=== PATIENT | female | born 1945 ===

== ENCOUNTER 2017-01-26 04:49 | Inpatient (IN) | payer OTHER ==
[~2017-01-26] VITALS: Ht 165.1 cm; Wt 84.6 kg
--- NOTE | ~2017-01-26 | CT18 ---
[facility] A Service of [facility] RADIOLOGY TEXT RESULTS PATIENT: EULALIO DEL CID LOCATION: [facility] : 47 UNIT #: [id number] AGE: [address]: ANNY BARNARD V SEX: F ORDER DR: [id number] [place], [place] [address] [id number] I MR#: [id number] Acc #: [id number] NAME: EULALIO DEL CID : 1945 SEX: F STUDY DATE/TIME: 01/26/2017 7:33 UNIT: [facility] PCU ROOM: [facility] STUDY DESCRIPTION: CT Angio Head Stroke Attending Physician: Anny Barnard M.D. Ordering Physician: Mekhi Buitrago M.D. Primary Care Physician: Primary Care Physician No MEDICAL IMAGING REPORT This report is preliminary unless electronic signature is present EXAM CT head and neck INDICATIONS Dizziness and slurred speech. Right-sided weakness. Nausea and vomiting. TECHNIQUE CT head neck utilizing 100 mL Isovue-370 IV contrast. Coronal and sagittal 3-D MIP reconstructions were obtained. Volume rendered and surface rendered reconstructions were performed. Curved planar reconstructions were also obtained and reviewed. The CT exam was performed with one or more of the following radiation dose reduction techniques: automatic exposure control, adjustment of mA and/or kV according to patient size, and iterative reconstruction. COMPARISON CT head dated 01/27/2017. FINDINGS CTA Neck: Evaluation for significant arterial stenosis is based upon NASCET criteria. There is a bovine aortic arch. Arch vessels are widely patent. Left vertebral artery emanates directly off of the aortic arch. Both carotid arteries have mild atherosclerotic disease, however, there is no evidence for significant stenosis. The left vertebral artery is hypoplastic, however it is widely patent. Right vertebral artery is dominant. There is mild atherosclerotic disease involving the proximal right vertebral artery, however this is not felt to be significant. [facility] A Service of [facility] RADIOLOGY TEXT RESULTS PATIENT: EULALIO DEL CID LOCATION: [facility] : 47 UNIT #: [id number] AGE: [address]: ANNY BARNARD V SEX: F ORDER DR: CTA head: There is moderate atherosclerotic disease of the intracranial internal carotid arteries. No evidence of vascular stenosis. There is mild atherosclerotic disease involving the middle cerebral arteries and the anterior cerebral arteries, however there is no evidence of a significant stenosis. The anterior communicating artery is widely patent. The left vertebral artery is hypoplastic terminating as the PICA branch. Right vertebral artery is dominant. Basilar artery is normal. The posterior cerebral arteries are both widely patent. The posterior communicating arteries are not clearly identified. IMPRESSION 1. Moderate atherosclerotic disease throughout the head and neck, however, there is no evidence of a significant vascular stenosis, thrombosis, or aneurysm Dictated by... Silvio Rodriguez M.D. THIS IS AN ELECTRONICALLY VERIFIED REPORT Silvio Rodriguez M.D. at 01/28/2017 11:09 AM CORBIN/corinne TD: 01/28/2017 10:44 JOB #: [id number] MEDICAL IMAGING REPORT Page 1 of 1 COPY
--- NOTE | ~2017-01-26 | CO ---
Unit #: [id number] #: [id number] Patient: EULALIO DEL CID [id number] [facility] [address] [place], [place] [address] [id number] I MR#: [id number] NAME: EULALIO DEL CID ROOM: 319 Age: 71 Sex: F Admission Date: 01/26/2017 : 1945 Attending Physician: Wes Angulo M.D. Primary Care Physician: Primary Care Physician No Consultation Date: 01/26/2017 CONSULTATION REPORT REFERRING PHYSICIAN 1. Tejal Sanchez M.D. 2. Mekhi Buitrago M.D. PRIMARY CARE PHYSICIAN Not known. REASON FOR CONSULTATION Possible stroke and acute change in mental status. PATIENT IDENTIFICATION This is a 71-year-old right-handed [place] female who is evaluated in ICU room #[address] [facility]. SOURCE OF INFORMATION The patient and we used a scrub nurse phone because of difficulty with her particular dialect and possible with communication problem and speech issues, ultimately start using her daughter on the scrub nurse phone. PROBLEM LIST 1. It looks like she has prior strokes. 2. Looks like she has hypertension. 3. Also, she came in with different symptoms including nausea and vomiting. 4. 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 5. She was also having some dizziness. HISTORY OF PRESENT ILLNESS This is a very pleasant 71-year-old female who actually is from [facility] and was visiting her family. She came in early this morning around 04:49 a.m. via EMS for some nausea, vomiting, and diarrhea. She was feeling dizzy. While she was being evaluated, they noticed that there was an abrupt change in her speech and that raised the flag and acute code stroke was called in at 06:36 a.m. She apparently was last seen normal at 06:25 in the morning while she was still in the hospital and being worked up for her other issues. I got called and I talked to Dr. Buitrago and got on the [employer] robot. She initially was reported to have right-sided weakness and some facial weakness, but the biggest issue was speech. When I examined her, the right-sided weakness, everything was fine, but she did have significant speech problem. So at that time, the decision was made that this was a measurable deficit and we made medication error, but definitely she was not communicating at all even simple things and following commands, so decided to take her to the ER and talk to the Unit #: [id number] #: [id number] Patient: EULALIO DEL CID family and look for any contraindication and fulfill requirements and if she continues to be like that to give her tPA, then she improved significantly and few minutes later, she started having problems again. She was talking to her family and air hammer stripper phone and instead of saying anything particular she would say "da da da da da." So I talked to Dr. Buitrago and we decided to go ahead with tPA. I requested a CTA in the meantime and I looked at it looks okay to me with no major cut off, but official reading is pending. TPA was started at 07:53 a.m. and this was all because of the changing status and getting more information. She has improved significantly. Next, the ER staff gave her score of about 6 and most of that was for left-sided weakness and numbness and she is residual from a prior stroke, which on CT looks like right basal ganglia infarct and that could explain this, but now we are following stroke protocol one of the other concern was her blood pressure was elevated and that is being addressed. I talked to Dr. Sanchez personally and we are looking at other issues. There was question about hydroureter, so that is being addressed. It looks like she may be taking some sort of antiplatelet aggregates, but we are trying to get that information and the medication list. When asked the patient, she says that her body feels heavy. She is not saying any particular focal problem anymore like speech problem or right-sided weakness. Nothing suggesting seizures. PAST MEDICAL HISTORY As discussed above. PAST SURGICAL HISTORY Nothing known to me. ALLERGIES Not known to me. MEDICATIONS She is on some sort of anti-platelet. Other medications are being looked into, I do not have the list right now or MAR. She is n.p.o. because of the stroke. FAMILY HISTORY Details not known. SOCIAL HISTORY She is visiting from [facility]. She has been here since November. Her marital status is not known. There is no tobacco, alcohol, or drug use known to us. REVIEW OF SYSTEMS CONSTITUTIONAL: She reports that she feels heavy and that is it. She denies any weight issues, sleep problems, fever, chills, rigor, or sweats. HEENT: No headaches. No double vision, earache, runny nose, or sore throat. CARDIOVASCULAR: No chest pain, clubbing, cyanosis, orthopnea, or palpitations. PULMONARY: No shortness of breath, cough, or expectoration. GASTROINTESTINAL: She has some nausea, vomiting, and dizziness. Unit #: [id number] #: [id number] Patient: EULALIO DEL CID GENITOURINARY: No genitourinary symptoms. EXTREMITIES: Positive for stroke with prior left-sided weakness. BACK: No back problem. PSYCHIATRIC: No psychiatric issue known to me. NEUROLOGIC: Neurologic issue was stroke. No other hematologic, dermatologic, or endocrine issues known to me. PHYSICAL EXAMINATION VITAL SIGNS: Temperature 97.7, pulse 67, respirations 18, and blood pressure 147/65. Pain was reported as 4/10. O2 saturations 96%. Weight of 184 pounds. BMI was 30. NEUROLOGIC EXAMINATION The patient is awake. She is alert. She knows this is January. She knows she is in the hospital in [place], year, date, and time otherwise is very questionable. She can name. She can follow commands. Cranial nerve examination demonstrates full wu of vision to confrontation. Eye movements seem to be conjugate. Pupils are round and reactive to light, and accommodation size about 3 mm. Eye movements are conjugate. No ptosis. No nystagmus. Sensation on the face and scalp are normal. Strength of muscles of facial expression normal. Hearing seemed to be intact. Tongue was midline. I could not visualize her oropharynx or uvula. Head turning was spontaneous. Motor examination demonstrated normal bulk and tone on the right side. Left side questionably give-way weakness. Sensory examination, very minimal decreased sensation on the left side. I could not get any reflexes. Toes are mute. Coordination on the right and left was otherwise okay. Gait examination is deferred. LABORATORY DATA AND DIAGNOSTIC STUDIES Reviewed and as discussed. Random glucose was 175. White count was 9.3, H and H of 12.8 and 38.3, and platelet count was 212. Urinalysis is pending. CT of the head showed what looks like old right basal ganglia infarct. Her MRI and further testing are pending. CT results are pending. IMPRESSION/RECOMMENDATIONS Status post alteplase for speech problem, which is improving. Rule out infection, rule out unmasking. Do full stroke workup and we will go from there. Treatment will be based on our findings and I will keep you informed and detailed discussion with her daughter. I using her as a scrub nurse because of her language barrier and we will see how things go. I will follow her while she is here and follow the stroke protocol. Call me for any other questions, issues, or concerns. Dictated by... Claudia Valladares/raffy TD: 01/27/2017 09:40 JOB #: [id number] Unit #: [id number] #: [id number] Patient: EULALIO DEL CID CONSULTATION REPORT Page 1 of 1 X Herson Farrell MD X CONSULTATION REPORT
--- NOTE | ~2017-01-26 | CT71 ---
[facility] A Service of [facility] RADIOLOGY TEXT RESULTS PATIENT: EULALIO DEL CID LOCATION: [facility] PC 319-01 : [birth year] UNIT #: [id number] AGE: [address]: ANNY BARNARD V SEX: F ORDER DR: [id number] [place], [place] [address] [id number] I MR#: [id number] Acc #: [id number] NAME: EULALIO DEL CID : 1945 SEX: F STUDY DATE/TIME: 01/27/2017 8:08 UNIT: [facility] ROOM: [facility] STUDY DESCRIPTION: CT Head Wo Contrast Attending Physician: Anny Barnard M.D. Ordering Physician: Herson Farrell M.D. Primary Care Physician: Primary Care Physician No MEDICAL IMAGING REPORT This report is preliminary unless electronic signature is present EXAM CT of the head without contrast INDICATION Left side weakness and slurred speech since yesterday. Patient is status post tPA administration. TECHNIQUE CT head performed without contrast. This CT exam was performed with one or more of the following radiation dose reduction techniques: automatic exposure control, adjustment of mA and/or kV according to patient size, and iterative reconstruction. COMPARISON 01/26/2017 FINDINGS There is no evidence for intracranial hemorrhage. Stable hypodensity in the region of the left thalamus consistent with the patient's acute infarct shown on MRI. Stable lacunar infarct in the right basal ganglia region. Stable chronic-appearing white matter changes elsewhere. No hydrocephalous. The remainder of the study is unchanged. IMPRESSION Stable acute infarct within the left thalamus. No evidence for intracranial hemorrhage. Stable chronic changes elsewhere. Dictated by... Mulugeta East M.D. THIS IS AN ELECTRONICALLY VERIFIED REPORT Mulugeta East M.D. at 01/28/2017 7:[address] [facility] A Service of [facility] RADIOLOGY TEXT RESULTS PATIENT: EULALIO DEL CID LOCATION: [facility] 319-01 : [birth year] UNIT #: [id number] AGE: [address]: ANNY BARNARD V SEX: F ORDER DR: Agatha TD: 01/27/2017 10:33 JOB #: [id number] MEDICAL IMAGING REPORT Page 1 of 1 COPY
--- NOTE | ~2017-01-26 | CT71 ---
[facility] A Service of [facility] RADIOLOGY TEXT RESULTS PATIENT: EULALIO DEL CID LOCATION: [address] : [birth year] UNIT #: [id number] AGE: [address]: Tejal Sanchez MD SEX: F ORDER DR: [id number] [facility] [address] [place], [place] [address] [id number] I MR#: [id number] Acc #: [id number] NAME: EULALIO DEL CID : 1945 SEX: F STUDY DATE/TIME: 01/26/2017 9:38 UNIT: [facility] ROOM: [facility] STUDY DESCRIPTION: CT Head Wo Contrast Attending Physician: Tejal Sanchez M.D. Ordering Physician: Mekhi Buitrago M.D. Primary Care Physician: Primary Care Physician No MEDICAL IMAGING REPORT This report is preliminary unless electronic signature is present EXAM Head CT without contrast 01/26/2017 HISTORY Acute mental status change today with slurred speech and vomiting. Right side weakness. Dizziness. TECHNIQUE Multiple axial images were obtained from the skull base to vertex without intravenous contrast administration. This CT exam was performed with one or more of the following radiation dose reduction techniques: automatic exposure control, adjustment of mA and/or kV according to patient size, and iterative reconstruction. FINDINGS Arterial calcification is noted from preceding CT angiogram of the head neck. The ventricles are normal in size, shape and position. There is periventricular microvascular white matter ischemic change. Old infarct in the right lentiform nucleus. Basal ganglia calcification. There is no midline shift. There is no mass or mass effect, hemorrhage or acute infarct. The visualized paranasal sinuses are clear. IMPRESSION Microvascular white matter ischemic change. Old infarct right lentiform nucleus. No acute intracranial abnormality. Dictated by... Jeremy Fong M.D. THIS IS AN ELECTRONICALLY VERIFIED REPORT Jeremy Fong M.D. at 01/27/2017 6:36 AM KRT/to [facility] A Service of [facility] RADIOLOGY TEXT RESULTS PATIENT: EULALIO DEL CID LOCATION: [facility]IC[facility]2-04 : [birth year] UNIT #: [id number] AGE: [address]: Tejal Sanchez MD SEX: F ORDER DR: TD: 01/26/2017 15:06 JOB #: [id number] MEDICAL IMAGING REPORT Page 1 of 1 COPY
--- NOTE | ~2017-01-26 | MR18 ---
[facility] A Service of [facility] RADIOLOGY TEXT RESULTS PATIENT: EULALIO DEL CID LOCATION: A 319-01 : [birth year] UNIT #: [id number] AGE: [address]: ANNY BARNARD V SEX: F ORDER DR: [id number] [facility] [address] [place], [place] [address] [id number] I MR#: [id number] Acc #: [id number] NAME: EULALIO DEL CID : 1945 SEX: F STUDY DATE/TIME: 01/26/2017 14:18 UNIT: A U ROOM: 319 STUDY DESCRIPTION: MR Brain Wo Contrast Attending Physician: Anny Barnard M.D. Ordering Physician: Tejal Sanchez M.D. Primary Care Physician: Primary Care Physician No MRI CENTER REPORT This report is preliminary unless electronic signature is present. EXAM MRI brain without HISTORY Dizziness and slurred speech after arrival at 06:20 post t-PA around 07:53. History of stroke in the past and left-sided weakness residually per daughter. History of hypertension, diabetes. COMMENT MRI of the brain was performed without contrast using routine 1.5T imaging technique. Preliminary wet reading provided by Dr. Thomas at 16:25 01/26/2017. Report relayed to Adair Dutton, nurse caring for the patient, 04:28 p.m. same day. Head CT comparison is from 06:47 01/26/2017. Some restricted diffusion seen at the anteromedial left thalamus extending along the posterior limb of the internal capsule on the left side. This is subtle and consistent with a recent ischemic insult. It is probably at most about 2.0 cm in longest dimension and at this time there is no appreciable mass effect. At this time there is nothing to suggest intracranial hemorrhage. There is mineral deposition bilaterally at the globus pallidi. No Chiari-I malformation. The major arterial intracranial flow voids are maintained allowing for hypoplasia or disease of the distal left vertebral artery. Minimal fluid or inflammatory change at the mastoid tip on the left. The paranasal sinuses are essentially clear. There is extensive preexisting probable sequelae of small vessel disease and this includes a focal area of signal abnormality and volume loss in the right posterior holman radiata and posterior limb of the internal capsule consistent with the old CVA that had resulted in a left body symptoms. There is no extraaxial fluid collection or intracranial mass effect at this time. Smaller bilateral basal ganglionic and thalamic lacunar insults are also seen. IMPRESSION [facility] A Service of [facility] & [facility] RADIOLOGY TEXT RESULTS PATIENT: EULALIO DEL CID LOCATION: [facility] 319-01 : [birth year] UNIT #: [id number] AGE: [address]: ANNY BARNARD V SEX: F ORDER DR: Starla. Findings are consistent with a recent ischemic insult centered at the anterior left thalamus involving posterior limb of the left internal capsule. It is not associated with mass effect or MR evidence for intracranial hemorrhage. 2. There is fairly extensive probable sequelae of small vessel disease which is chronic. This includes a focal insult to the right posterior holman radiata and posterior limb of the right internal capsule consistent with history of previous CVA resulting in left body weakness. STAT * RESULT Dictated by... Neeru Vieira M.D. THIS IS AN ELECTRONICALLY VERIFIED REPORT Neeru Vieira M.D. at 01/28/2017 2:10 PM [facility] TD: 01/28/2017 08:38 JOB #: [id number] MRI CENTER REPORT Page 1 of 1 COPY
--- NOTE | ~2017-01-26 | HP ---
Unit #: [id number] #: [id number] Patient: EULALIO DEL CID [id number] [facility]. [place], [place] [address] [id number] I MR#: [id number] NAME: EULALIO DEL CID ROOM: [facility] Age: 71 Sex: F Admission Date: 01/26/2017 : 1945 Attending Physician: Tejal Sanchez M.D. Primary Care Physician: No Primary Care Physician HISTORY AND PHYSICAL CHIEF COMPLAINT Nausea, vomiting, diarrhea. HPI The patient is a 71-year-old female who is from [facility]. History is obtained via the patient's daughter who is translating. The patient states that she woke from sleep this morning around 2:30 with nausea, vomiting, diarrhea and abdominal pain. The vomiting was initially nonbloody; however, it did become dark during the course of her evaluation in the emergency department. The pain in her abdomen is in the left lower quadrant. She describes it as "pressure." There are no exacerbating or alleviating factors. She denies any similar pain. She states that she did start having burning with urination yesterday. She had one loose stool today. She denies any fever. No chest pain, no cough or cold symptoms. During the course of her evaluation in the emergency department, the patient had a change in mental status. Her speech became slurred and unintelligible. She appeared to have weakness on the left side. A Code Stroke was called. Initial NIH was 6. She was given tPA. She is being admitted to [facility] for evaluation and further treatment. The symptoms are still present. Although speech is somewhat improved, the patient still has left sided weakness. PAST MEDICAL HISTORY 1. Cerebrovascular accident in 2000. The patient had left sided weakness and numbness at that time. She did go to rehab. She has residual left sided weakness and numbness. 2. Hypertension. 3. Hyperlipidemia. 4. Diabetes. PAST SURGICAL HISTORY 1. Foot surgery. SOCIAL HISTORY The patient is from [facility]. She is here in [place] visiting her daughter. She typically walks with a cane. She quit smoking several months ago. FAMILY HISTORY Notable for her dad dying of a myocardial infarction. ALLERGIES Unit #: [id number] #: [id number] Patient: EULALIO DEL CID There are no allergies listed. MEDICATIONS Home medications include: 1. Metformin. 2. Dipyridamole. 3. Atorvastatin. 4. What looks like a beta adeola (some of the medications are in Vietnamese). Home medications will need to be reviewed and verified. REVIEW OF SYSTEMS A complete review of systems is negative except as indicated in the HPI. The patient states that she has never had a cardiac catheterization. She denies heart failure. No coronary artery disease. DIAGNOSTIC TESTS CARDIOVASCULAR: EKG shows normal sinus rhythm with a rate of 65 beats per minute. IMAGING: Initial head CT was negative. A repeat head CT was done following an episode of dark emesis in the emergency department. It also showed nothing acute. There is an old infarct involving the right lentiform nucleus.. LABORATORY: Basic metabolic panel notable for glucose of 183, BUN and creatinine of 29 and 1 respectively. Initial troponin is less than 0.05. Complete blood count is completely normal. There is no urinalysis. PHYSICAL EXAMINATION VITAL SIGNS: Temperature is 98.4, pulse 67, respirations 15, blood pressure 138/68. Oxygen saturation 96% on room air. GENERAL: The patient is a awake and alert. HEENT: The head is atraumatic. Mucous membranes are moist. NECK: Neck is supple. Trachea is midline. CARDIOVASCULAR: Cardiovascular is regular rate and rhythm. LUNGS: Lungs are clear to auscultation bilaterally with no increased work of breathing. ABDOMEN: Abdomen is soft, nontender with bowel sounds present in all four quadrants. EXTREMITIES: Extremities are nontender with no pedal edema. NEURO: The patient is still having some abnormal speech per her daughter. There is no appreciable pronator drift. She does have weakness involving the left lower extremity. Stencil Printer strength is symmetric. Gait was not assessed. PSYCH: Mood and affect are normal. The patient is cooperative. SKIN: Skin of examined areas is warm and dry. ASSESSMENT The patient is a 71-year-old female with: 1. Cerebrovascular accident. The patient received tPA in the emergency department. 2. Left hydroureter/hydronephrosis. A urinalysis is pending. Unit #: [id number] #: [id number] Patient: EULALIO DEL CID 3. Abdominal pain. 4. History of cerebrovascular accident, right lentiform nucleus with residual left sided weakness that is currently worse than baseline. 5. Hypertension. 6. Hyperlipidemia. 7. Diabetes. 8. Former smoker. PLAN 1. Admit to ICU. 2. NPO until speech evaluation and per tPA protocol. 3. Speech therapy to evaluate and treat. 4. Consult Dr. Farrell regarding cerebrovascular accident. 5. tPA protocol and stroke protocol per neurology. 6. MRI of the brain without contrast. 7. Neuro checks. 8. Serial cardiac enzymes. 9. P.r.n. Zofran. 10. Check urinalysis. 11. Strict I's and O's. 12. Consult Dr. Wharton regarding hydronephrosis/hydroureter. 13. Check LFTs. 14. Consult Dr. Osman regarding ICU admission. 15. Repeat labs in the morning including INR. 16. SCDs for DVT prophylaxis. 17. Additional workup and consultants based on above. 45 minutes critical care time spent in the care of this patient (11:30 to 12:15 p.m.). Dictated by Claudia Willams/lilo TD: 01/26/2017 14:53 JOB #: [id number] HISTORY AND PHYSICAL Page 1 of 1 X Tejal Sanchez MD X HISTORY AND PHYSICAL
--- NOTE | ~2017-01-26 | CT24 ---
[facility] A Service of [facility] & [facility] RADIOLOGY TEXT RESULTS PATIENT: EULALIO DEL CID LOCATION: [facility] 319-01 : [birth year] UNIT #: [id number] AGE: [address]: ANNY BARNARD V SEX: F ORDER DR: [id number] [address] [id number] I MR#: [id number] Acc #: [id number] NAME: EULALIO DEL CID : 1945 SEX: F STUDY DATE/TIME: 01/26/2017 7:33 UNIT: [address] ROOM: [employer] STUDY DESCRIPTION: CT Angio Neck Stroke Attending Physician: Anny Barnard M.D. Ordering Physician: Mekhi Buitrago M.D. Primary Care Physician: Primary Care Physician No MEDICAL IMAGING REPORT This report is preliminary unless electronic signature is present EXAM CT angiogram neck Please see CT angiogram of the head for combined report. Dictated by... Silvio Rodriguez M.D. THIS IS AN ELECTRONICALLY VERIFIED REPORT Silvio Rodriguez M.D. at 01/28/2017 11:09 AM CORBIN/corinne TD: 01/28/2017 10:52 JOB #: [id number] MEDICAL IMAGING REPORT Page 1 of 1 COPY
--- NOTE | ~2017-01-26 | CR72 ---
[facility] A Service of [facility] & [facility] RADIOLOGY TEXT RESULTS PATIENT: EULALIO DEL CID LOCATION: [facility] 319-01 : [birth year] UNIT #: [id number] AGE: [address]: ANNY BARNARD V SEX: F ORDER DR: [id number] [facility] [address] [place], [place] [address] [id number] I MR#: [id number] Acc #: [id number] NAME: EULALIO DEL CID : 1945 SEX: F STUDY DATE/TIME: 01/27/2017 3:22 UNIT: [facility] ROOM: [facility] STUDY DESCRIPTION: CR Chest Single View Portable Attending Physician: Anny Barnard M.D. Ordering Physician: Maximus Ordonez M.D. Primary Care Physician: Primary Care Physician No MEDICAL IMAGING REPORT This report is preliminary unless electronic signature is present EXAM Portable chest INDICATION Shortness of air for the past 2 days. PROCEDURE Frontal view chest. COMPARISON None FINDINGS Mild cardiomegaly. No dense consolidation. No visible pleural fluid or pneumothorax. IMPRESSION No active process. Dictated by... Faizan Welch M.D. THIS IS AN ELECTRONICALLY VERIFIED REPORT Faizan Welch M.D. at 01/27/2017 10:07 PM Nelly TD: 01/27/2017 08:35 JOB #: [id number] MEDICAL IMAGING REPORT Page 1 of 1 COPY
--- NOTE | ~2017-01-26 | CT4 ---
[facility] A Service of [facility] & [facility] RADIOLOGY TEXT RESULTS PATIENT: EULALIO DEL CID LOCATION: [facility] 319-01 : [birth year] UNIT #: [id number] AGE: [address]: ANNY BARNARD V SEX: F ORDER DR: [id number] [id number] [facility]. [place], [place] [address] [id number] I MR#: [id number] Acc #: [id number] NAME: EULALIO DEL CID : 1945 SEX: F STUDY DATE/TIME: 01/28/2017 9:40 UNIT: [facility] PCU ROOM: 319 STUDY DESCRIPTION: CT Abd and Pelv Wo Cont Attending Physician: Anny Barnard M.D. Ordering Physician: Anny Barnard M.D. Primary Care Physician: Primary Care Physician No MEDICAL IMAGING REPORT This report is preliminary unless electronic signature is present EXAM CT of the abdomen and pelvis without contrast INDICATION New left-sided abdominal pain. This patient had a CT performed 01/26/2017 which showed left-sided hydroureteronephrosis without obvious obstructing lesion. TECHNIQUE Axial CT images were obtained from the dome of the diaphragm to the symphysis pubis. No intravenous contrast material was administered. This CT exam was performed with one or more of the following radiation dose reduction techniques: Automatic exposure control, adjustment of mA and/or kV according to patient size, and iterative reconstruction. FINDINGS Left-sided hydroureteronephrosis is again seen. I think the degree of dilatation is probably stable when compared to the January 26, 2017 examination. Adjacent to the distal left ureter, there is some hyperdensities but I think these are actually phleboliths rather than stones within the ureter, particularly when compared to the prior study. A Box catheter is present within the urinary bladder which does appear to be relatively well decompressed. No stones are identified within either kidney. There is some persistent perinephric stranding. The appearance, however, is unchanged when compared to the prior study. Correlation with urinalysis and urine cultures is again suggested. There is diffuse hepatic steatosis as well as hepatomegaly with the liver measuring up to 16.2 cm in craniocaudal dimensions. There is a small hiatal hernia. Proximal small bowel is within normal limits as are the adrenal glands and pancreas. Spleen is normal. Gallbladder also appears unremarkable. I do not see any free fluid or adenopathy within the abdomen. There is no evidence of mechanical bowel obstruction. Uterus contains multiple calcified leiomyomata. Unopacified GI tract appears STS. [facility] A Service of [facility] RADIOLOGY TEXT RESULTS PATIENT: EULALIO DEL CID LOCATION: [facility] 319-01 : [birth year] UNIT #: [id number] AGE: [address]: ANNY BARNARD V SEX: F ORDER DR: avelino. Review of bony windows does not demonstrate any aggressive osseous abnormalities. Patient is noted to have some mild bibasilar atelectasis not significantly changed when compared to prior study. IMPRESSION 1. Persistent mild left-sided hydroureteronephrosis of uncertain etiology. There are some hyperdensities which are seen adjacent to the distal left ureter, however, I think these are actually probably phleboliths rather than stones within the ureter, based upon comparison to this patient's enhanced study from January 26, 2017. A Box catheter is present within the urinary bladder and appears relatively decompressed. I do not see any definite stones within either kidney. Degree of hydronephrosis is stable when compared to the January 26, 2017 exam. There is fairly extensive periureteral and perinephric soft tissue stranding. Correlation with urinalysis and urine cultures is suggested. I am not convinced the stranding has significantly increased when compared to the prior examination. 2. Hepatomegaly and diffuse hepatic steatosis. 3. Calcified uterine fibroids. 4. Please see the body of the report for any other additional incidental findings. STAT * RESULT Dictated by... Criss Cedeño M.D. THIS IS AN ELECTRONICALLY VERIFIED REPORT Criss Cedeño M.D. at 01/29/2017 8:01 AM AFF/aa TD: 01/28/2017 13:28 JOB #: [id number] MEDICAL IMAGING REPORT Page 1 of 1 COPY
--- NOTE | ~2017-01-26 | DS ---
Unit #: [id number] #: [id number] Patient: EULALIO DEL CID [id number] [address] [id number] I MR#: [id number] NAME: EULALIO DEL CID ROOM: 319 Age: 71 Sex: F Admission Date: 01/26/2017 : 1945 Discharge Date: 01/30/2017 Attending Physician: Wes Angulo M.D. Primary Care Physician: Primary Care Physician No DISCHARGE SUMMARY HOSPITAL COURSE The patient is a 71-year-old woman from [facility] with a prior history significant for an acute stroke with prior left-sided weakness. She had presented to the hospital with initial symptoms of vomiting and abdominal pain. During the time she was in the emergency room, the patient was noted to have slurring of her speech and left-sided weakness. The patient was given tPA in the emergency room. Followup CAT scan of the head demonstrated an acute infarct in the left thalamus. A repeat CAT scan of the head was done 24 hours after tPA that demonstrated stable acute infarct in the left thalamus with no intracranial hemorrhage. She had resolution of her slurred speech and had returned to a regular baseline activity. Regarding abdominal pain and nausea, CAT scan demonstrated mild left-sided hydronephrosis of uncertain etiology. Urology was consulted, but was unable to access the ureter cystoscopically. He had ordered a consultation of Interventional Radiology for percutaneous left nephrostomy; however, this would be prior the patient to be off antiplatelet therapy for 5 days. Ultimately, it was decided that since the patient's renal function was normal, a percutaneous left nephrostomy was not worth risk of taking the patient off antiplatelet therapy for 5 days. The patient will be discharged home today. The patient is stable and doing well. Her B12 level was noted to be low at 107. Her folate was in normal range. During her admission, the patient received iron and B12. She should be discharged on oral B12 with recommendations to follow up with her primary care physician of her B12 level and continued subcu or intramuscular B12 administration. DISCHARGE MEDICATIONS Valsartan/hydrochlorothiazide 80/12.5 mg tab one p.o. daily, metformin 850 mg p.o. b.i.d., bisoprolol 10 mg p.o. b.i.d. before supper, Lipitor 40 mg p.o. at bedtime, Amaryl 4 mg a.c. dinner, Plavix 75 mg p.o. once daily for antiplatelet therapy, B complex 1000 mg p.o. once daily. DISCHARGE DIAGNOSES 1. Acute left thalamic infarct. 2. Chronic right basal ganglia infarct. 3. Mild left hydronephrosis. 4. Congenital left cystocele. DISCHARGE INSTRUCTIONS The patient will receive a CD of her CAT scan of her abdomen to take home. She will follow up with her home urologist as an outpatient. She will follow up with primary care physician. She will need to have her B12 Unit #: [id number] #: [id number] Patient: EULALIO DEL CID checked on regular basis and she will continue on Plavix 75 mg p.o. once daily for antiplatelet therapy. Her Lipitor dose was increased from 10 mg to 40 mg during her admission. Dictated by... Claudia Amin/raffy TD: 02/03/2017 11:08 JOB #: [id number] DISCHARGE SUMMARY Page 1 of 1 X X DISCHARGE SUMMARY
--- NOTE | ~2017-01-26 | OR ---
Unit #: [id number] #: [id number] Patient: EULALIO DEL CID [id number] [address] [place], [place] [address] [id number] Ilan MR#: [id number] NAME: EULALIO DEL CID ROOM: 319 Date of Procedure: 01/29/2017 Admission Date: 01/26/2017 Surgeon: Ervin Wharton M.D. : 1945 Attending Physician: Wes Angulo M.D. Primary Care Physician: Primary Care Physician No OPERATIVE REPORT PREOPERATIVE DIAGNOSIS Left hydroureteronephrosis. POSTOPERATIVE DIAGNOSIS Left hydroureteronephrosis. PROCEDURE PERFORMED Cystoscopy with attempted left retrograde. ANESTHESIA General with local supplementation. INDICATIONS FOR PROCEDURE This 71-year-old woman admitted with a recent stroke and with persistent left hydroureteronephrosis with severe delay of excretion of contrast. It does not appear to have a stone, but rather very distal obstruction. She is brought for a left retrograde and stent placement. DESCRIPTION OF PROCEDURE The patient was on antibiotics preoperatively. She was given satisfactory general anesthesia and positioned in dorsal lithotomy. The genitalia were prepped and draped. The 21-Georgian rigid cystoscope was introduced with a 30-degree lens and video noting a generally healthy bladder with the exception of mild trigonal hyperkeratosis. The right ureteral orifice was pinpoint, but appears healthy and normal. The area of the left ureteral orifice was prominent seemingly fluctuant and diffusely mildly reddened in an inflammatory way. The location of the ureteral orifice was not clear. I probe with a pollack catheter, then a Sensor guidewire through a pollack catheter. I then switched to a 70 degree lens and this did not improve identification of the left ureteral orifice. I switched back to the 30-degree lens and used an Saul deflecting bridge to methodically rate the tip of a Sensor guidewire, through a pollack catheter across the area of interest numerous times stopping to probe any potential opening. There were no false passages, but there were no candidates for the orifice identified. After 20 minutes of methodical searching, I considered biopsy or TUR and felt this was not appropriate or necessary and will need to defer to Interventional Radiology for access at this point. Pullback showed some mechanical irritation of the bladder neck from the close application of the cystoscope during the probing process. There was no significant bleeding or ulceration. The bladder was drained. The cystoscope removed and a Uro-jet applied without replacing the Box catheter. She tolerated the procedure well. I have spoken with the patient's daughter, who verbally consents with my moving ahead with left Unit #: [id number] #: [id number] Patient: EULALIO DEL CID percutaneous nephrostomy. We will consult Interventional about this noting she has been on a 325 aspirin. Dictated by... Ervin Wharton M.D. CLEO/raffy TD: 01/30/2017 12:15 JOB #: [id number] OPERATIVE REPORT Page 1 of 1 X Ervin Wharton MD X PROCEDURE OPERATIVE NOTE
--- NOTE | ~2017-01-26 | EKG ---
PATIENT: EULALIO DEL CID UNIT #: [id number] Ventricular Rate: 65 BPM Atrial Rate: 65 BPM P-R Interval: 162 ms QRS Duration: 88 ms Q-T Interval: 416 ms QTC Calculation(Bezet): 432 ms P [place]: 46 degrees Calculated R [place]: 7 degrees Calculated T [place]: 38 degrees Diagnosis Line: Normal sinus rhythm Diagnosis Line: Minimal voltage criteria for LVH, may be normal Diagnosis Line: variant Diagnosis Line: Normal ECG Early repolarization Diagnosis Line: No previous ECGs available Diagnosis Line: Confirmed by KILEY RAZO MD ([id number]) on 01/27/2017 Diagnosis Line: 2:01:26 PM INTERPRETING MD: DANNI RAYMOND
--- NOTE | ~2017-01-26 | CT4 ---
[facility] A Service of [facility] & [facility] RADIOLOGY TEXT RESULTS PATIENT: EULALIO DEL CID LOCATION: [facility] 319-01 : [birth year] UNIT #: [id number] AGE: [address]: EVONANNY V SEX: F ORDER DR: [id number] [facility] [address] [facility]. [place], [place] [address] [id number] I MR#: [id number] Acc #: [id number] NAME: EULALIO DEL CID : 1945 SEX: F STUDY DATE/TIME: 01/26/2017 9:40 UNIT: [id number] [facility] ST[facility] DES[facility]: CT Abd and Pelv Wo Cont Attending Physician: Tejal Sanchez M.D. Ordering Physician: Mekhi Buitrago M.D. Primary Care Physician: Primary Care Physician No MEDICAL IMAGING REPORT This report is preliminary unless electronic signature is present EXAM CT abdomen and pelvis without contrast INDICATIONS Left lower quadrant pain and vomiting today TECHNIQUE CT of the abdomen and pelvis was performed without contrast. Coronal and sagittal reformatted images were obtained. This CT exam was performed with one or more of the following radiation dose reduction techniques: automatic exposure control, adjustment of mA and/or kV according to patient size, and iterative reconstruction. COMPARISON No comparison studies are available. FINDINGS There is atelectasis in the lung bases. The liver, gallbladder and spleen are unremarkable. There is residual contrast in the renal collecting system from prior contrast-enhanced study earlier today. There is hydronephrosis and hydroureter on the left. The exact source of the hydronephrosis and hydroureter is unknown but the abnormality extends all the way down to the urinary bladder. There is a Box catheter in place and the bulb is in the region of the ureterovesical junctions and conceivably the Box bulb may be causing hydronephrosis/hydroureter. There is residual contrast enhancement within the parenchyma of the left kidney. Right kidney contains some contrast in the collecting system and no residual parenchymal enhancement. The adrenal glands are unremarkable. The pancreas is unremarkable. There is some stranding around the left kidney. Pelvis: Box catheter in the bladder. The colon is unremarkable and the appendix is normal. Fibroid uterus. No free fluid. [facility] A Service of [facility] RADIOLOGY TEXT RESULTS PATIENT: EULALIO DEL CID LOCATION: [facility] 319-01 : [birth year] UNIT #: [id number] AGE: [address]: ANNY BARNARD V SEX: F ORDER DR: Bone windows are unremarkable. IMPRESSION 1. There is residual contrast in the renal collecting system bilaterally from a previous contrast enhanced study. 2. There is a left-sided hydronephrosis and hydroureter all the way down to the ureterovesical junction without definite obstruction. A Box catheter is noted within the bladder and the balloon of the catheter is near the UVJ and conceivably this may be causing some obstruction. Also a stone lodged at the ureterovesical junction could also be causing the obstruction although the stone if present is masked by the contrast within the ureter. There is some residual intraparenchymal contrast within the left kidney and some stranding about the left kidney. 3. Additional findings as described. Dictated by... Mulugeta East M.D. THIS IS AN ELECTRONICALLY VERIFIED REPORT Mulugeta East M.D. at 01/28/2017 7:19 AM ARS/sherrell TD: 01/26/2017 15:07 JOB #: [id number] MEDICAL IMAGING REPORT Page 1 of 1 COPY
--- NOTE | ~2017-01-26 | CT72 ---
[facility] A Service of [facility] & [facility] RADIOLOGY TEXT RESULTS PATIENT: EULALIO DEL CID LOCATION: [address]04 : [birth year] UNIT #: [id number] AGE: [address]: Tejal Sanchez MD SEX: F ORDER DR: [id number] [facility] [address]. [place], [place] [address] [id number] I MR#: [id number] Acc #: [id number] NAME: EULALIO DEL CID : 1945 SEX: F STUDY DATE/TIME: 01/26/2017 6:47 UNIT: [facility] ROOM: [facility] STUDY DESCRIPTION: CT Head Wo Contrast Stroke Attending Physician: Tejal Sanchez M.D. Ordering Physician: Mekhi Buitrago M.D. Primary Care Physician: No Primary Care Physician MEDICAL IMAGING REPORT This report is preliminary unless electronic signature is present EXAM CT head without contrast 01/26/2017 HISTORY Dizziness, slurred speech and nausea and vomiting since 03:00 a.m. this morning with right side weakness, hypertension and diabetes. TECHNIQUE This CT exam was performed with one or more of the following radiation dose reduction techniques: automatic exposure control, adjustment of mA and/or kV according to patient size, and iterative reconstruction. FINDINGS Multiple axial images were obtained from the skull base to vertex without intravenous contrast administration. The ventricles are normal in size, shape and position. There is periventricular microvascular white matter ischemic change. There is an old infarct involving the right lentiform nucleus. Bilateral basal ganglia calcifications are noted. There is no midline shift. There is no mass or mass effect, hemorrhage or acute infarct. The visualized paranasal sinuses are clear. IMPRESSION Periventricular microvascular white matter ischemic change. Old infarct involving the right lentiform nucleus. No acute intracranial abnormality. Dictated by... Jeremy Fong M.D. THIS IS AN ELECTRONICALLY VERIFIED REPORT Jeremy Fong M.D. at 01/27/2017 6:33 AM FRANCOIS/mark [facility] A Service of [facility] & [facility] RADIOLOGY TEXT RESULTS PATIENT: EULALIO DEL CID LOCATION: [facility]IC[facility]2-04 : [birth year] UNIT #: [id number] AGE: [address]: Tejal Sanchez MD SEX: F ORDER DR: TD: 01/26/2017 14:36 JOB #: [id number] MEDICAL IMAGING REPORT Page 1 of 1 COPY
--- NOTE | ~2017-01-26 | CR72 ---
[facility] A Service of [facility] & [facility] RADIOLOGY TEXT RESULTS PATIENT: EULALIO DEL CID LOCATION: [facility] 319- : [birth year] UNIT #: [id number] AGE: [address]: ANNY BARNARD V SEX: F ORDER DR: [id number] [address] [place], [place] [address] [id number] I MR#: [id number] Acc #: [id number] NAME: EULALIO DEL CID : 1945 SEX: F STUDY DATE/TIME: 01/29/2017 4:38 UNIT: [address] ROOM: [facility] STUDY DESCRIPTION: CR Chest Single View Portable Attending Physician: Anny Barnard M.D. Ordering Physician: Maximus Ordonez M.D. Primary Care Physician: Primary Care Physician No MEDICAL IMAGING REPORT This report is preliminary unless electronic signature is present EXAM Portable chest INDICATION Respiratory failure. Follow-up. PROCEDURE Frontal view chest COMPARISON 01/27/2017 FINDINGS Heart size unchanged. Persistent diffuse interstitial prominence. No new dense opacity or pneumothorax. IMPRESSION Stable. Dictated by... Faizan Welch M.D. THIS IS AN ELECTRONICALLY VERIFIED REPORT Faizan Welch M.D. at 01/30/2017 9:56 PM Nelly TD: 01/29/2017 12:39 JOB #: [id number] MEDICAL IMAGING REPORT Page 1 of 1 COPY
--- NOTE | ~2017-01-26 | CO ---
Unit #: [id number] #: [id number] Patient: EULALIO DEL CID [id number] [facility] [address]. [place], [place] [address] [id number] MR#: [id number] NAME: EULALIO DEL CID ROOM: 319 Age: 71 Sex: F Admission Date: 01/26/2017 : 1945 Attending Physician: Wes Angulo M.D. Primary Care Physician: Primary Care Physician No Consultation Date: 01/26/2017 CONSULTATION REPORT HISTORY OF PRESENT ILLNESS A 71-year-old lady, who speaks only Kyrgyz with history of CVA, now with worsening weakness. The patient was found this morning to be nausea, vomiting, abdominal pain and initially nonbloody, however, dark emesis occurred during the course of evaluation in the emergency department. The patient is having left lower abdominal pain. The patient states she was having some burning with urination. She initially was speaking clearly, then her speech became slurred. The patient appeared to have weakness on right side. The patient had a code stroke with initial NIH of 6. She was given tPA. The patient admitted to [facility] for further evaluation and treatment. The patient's speech had improved by the time I had seen her, however, still oxygen is at 2 L nasal cannula. PAST MEDICAL HISTORY Significant for CVA in 2000 with residual weakness and numbness on the left, hypertension, hyperlipidemia, diabetes. PAST SURGICAL HISTORY Significant for foot surgery. SOCIAL HISTORY The patient is from [facility]. She is visiting her daughter in [place]. She walks with cane. She has an extensive smoking history, however, quit several months prior to admission. FAMILY HISTORY Significant for coronary artery disease. ALLERGIES The patient has no known medical allergies. HOME MEDICATIONS Includes metformin, dipyridamole, atorvastatin, and probably metoprolol. Home medications being reviewed. REVIEW OF SYSTEMS Negative except for as indicated in the history of present illness. The patient has nausea, weakness, and some fatigue. No significant chest pain and no shortness of breath on 2 L nasal cannula. PHYSICAL EXAMINATION VITAL SIGNS: T-current 98.0, pulse 74, respiratory rate 17, blood pressure 148/98. In's and out's not recorded. Unit #: [id number] #: [id number] Patient: EULALIO DEL CID HEENT: Extraocular movements are intact. The patient little bit of right sided weakness. CHEST: Decreased breath sounds bilateral in . NECK: Shows no accessory muscle use. CHEST: Shows decreased breath sounds bilaterally. CARDIOVASCULAR: Regular rate. No gallop. ABDOMEN: Soft, nontender, nondistended. EXTREMITIES: Shows no evidence of edema. ASSESSMENT/PLAN 1. The patient has probable status post cerebrovascular accident. CT scan did not show an exact site. Neurology is following. 2. The patient is having abdominal pain. This is likely secondary to urinary tract infection. Ultrasound shows a left hydronephrosis. We are going to treat the patient as sepsis, which has precipitated this cerebrovascular accident. We are awaiting culture of the urine. Urology is being consulted. Thank you very much. Please page me at [phone] if you have any questions. Dictated by... Claudia Umanzor/raffy TD: 01/29/2017 23:05 JOB #: [id number] CONSULTATION REPORT Page 1 of 1 X Dillan Ordonez MD X CONSULTATION REPORT
--- NOTE | ~2017-01-26 | CT71 ---
[facility] A Service of [facility] & [facility] RADIOLOGY TEXT RESULTS PATIENT: EULALIO DEL CID LOCATION: [facility] 319-01 : [birth year] UNIT #: [id number] AGE: [address]: EVONANNY V SEX: F ORDER DR: [id number] [facility] [address]. [place], [place] [address] [id number] I MR#: [id number] Acc #: [id number] NAME: EULALIO DEL CID : 1945 SEX: F STUDY DATE/TIME: 01/26/2017 20:04 UNIT: [facility] ROOM: [facility] STUDY DESCRIPTION: CT Head Wo Contrast Attending Physician: Tejal Sanchez M.D. Ordering Physician: Tejal Sanchez M.D. Primary Care Physician: Primary Care Physician No MEDICAL IMAGING REPORT This report is preliminary unless electronic signature is present EXAM CT head without IV contrast. COMPARISON CT head without IV contrast on the same date at 09:38 a.m. as well as MRI brain on the same date at 2:18 p.m. INDICATION 71-year-old female with inpatient admission for a stroke with increasing confusion and deteriorating mental status since 07:00 p.m. tonight. Recent TPA administration. Current treatment for urinary tract infection. This CT exam was performed with one or more of the following radiation dose reduction techniques: automatic exposure control, adjustment of mA and/or kV according to patient size, and iterative reconstruction. FINDINGS Mastoid air cells, middle ears and visualized paranasal sinuses are well-aerated. No acute fractures or suspicious osseous lesions. There are calcifications of the cavernous internal carotid arteries. There is no mass effect. No abnormal extraaxial fluid collection. There is normal cerebral volume for patient age. No acute intracranial hemorrhage. There are stable senescent calcifications at the level of the lentiform nuclei bilaterally. There is stable lacunar infarct at the level the right lentiform nucleus likely extending into the holman radiata and the posterior limb of the right internal capsule. This is chronic. There is mild bifrontal periventricular white matter hypoattenuation which is also stable, consistent with chronic small vessel ischemic change. This extends asymmetrically into the right frontoparietal holman radiata, stable from earlier today, also consistent with chronic small vessel ischemic change. Hypoattenuation in the anterior left thalamus is becoming more apparent than on comparison CT of earlier today. This corresponds to the area of acute ischemia seen on MRI of earlier today. [facility] A Service of [facility] RADIOLOGY TEXT RESULTS PATIENT: EULALIO DEL CID LOCATION: C3[facility] 319-01 : [birth year] UNIT #: [id number] AGE: [address]: ANNY BARNARD V SEX: F ORDER DR: JOO 1. There appears to be increasing hypoattenuation in the area of the left thalamus as compared to CT of earlier today. This likely reflects evolution of the acute-appearing infarct in the left thalamus seen on MRI performed at 02:27 p.m. today. No other new intracranial abnormality. Specifically there is no evidence of acute intracranial hemorrhage. Per request these findings were called to Dr. Farrell at the time of this dictation. Dictated by... Eugene Thomas M.D. THIS IS AN ELECTRONICALLY VERIFIED REPORT Eugene Thomas M.D. at 02/02/2017 6:33 PM TELLY/red TD: 01/27/2017 00:07 JOB #: [id number] MEDICAL IMAGING REPORT Page 1 of 1 COPY
[2017-01-26 05:37] LABS: POC - CKMB 1.4 ng/mL (0.0-7.9); POC - TROPONIN <0.05 ng/mL (<=0.05)
[2017-01-26 07:05] LABS: POC - CREATININE 1.26 mg/dL (0.44-1.03)
[2017-01-26 07:12] LABS: BASOPHIL# 0.1 X10e3 (0-0.3); BASOPHIL% 0.9 % (0-2.5); EOSINOPHIL# 0.1 X10e3 (0-0.7); EOSINOPHIL% 0.9 % (0.0-7.0); HEMATOCRIT 38.3 % (35.0-45.0); HEMOGLOBIN 12.8 gm/dL (12.0-16.0); LYMPHOCYTE% 21.1 % (17.0-45.0); MEAN CELL VOLUME 93.6 FL (83-96); MEAN CORPUSCULAR HEMOGLOBIN 31.3 PG (28-34); MEAN CORPUSCULAR HGB CONC 33.5 g/dL (30-36); MEAN PLATELET VOLUME 8.8 FL (6.5-11.5); MONOCYTE# 0.5 X10e3 (0-1.0); MONOCYTE% 5.4 % (3.0-12.0); NEUTROPHIL# 6.7 X10e3 (1.5-7.1); NEUTROPHIL% 71.7 % (40-75); PLATELET COUNT 212 X10e3 (140-420); RED BLOOD COUNT 4.09 X10e (3.90-5.30); RED CELL DISTRIBUTION WIDTH 12.4 % (11.0-15.5); WHITE BLOOD COUNT 9.3 X10e3 (4.0-10.5)
[2017-01-26 07:13] LABS: DIFF IND NO
[2017-01-26 07:33] LABS: CALCIUM SERUM 9.3 mg/dL (8.4-10.2); GLOM FILT RATE Estimated 57.5 mL/min (>60); POTASSIUM 3.8 mmol/L (3.5-5.1)
[2017-01-26 07:51] LABS: POC - CKMB 1.9 ng/mL (0.0-7.9); POC - TROPONIN <0.05 ng/mL (<=0.05)
[2017-01-26] MEDS ORDERED: VALSARTAN-HCTZ1 EACH PO (12:10)
[2017-01-26] MEDS ORDERED: AMARYL PO (12:11)
[2017-01-26] MEDS ORDERED: BISOPROLOL FUMA10 MG PO (12:12)
[2017-01-26] MEDS ORDERED: LIPITOR PO (12:14)
[2017-01-26] MEDS ORDERED: BACLOFEN10 MG PO (12:15)
[2017-01-26] MEDS ORDERED: GLUCOPHAGE850 MG PO (12:15)
[2017-01-26 12:16] LABS: URINE SOURCE CATH
[2017-01-26] MEDS ORDERED: PERSANTINE75 MG PO (12:16)
[2017-01-26] MEDS ORDERED: ASPIRIN PO (12:18)
[2017-01-26] MEDS ORDERED: ANTI-DIARRHEAL2 M1 PO (12:19)
[2017-01-26 12:32] LABS: URINE APPEARANCE CLEAR; URINE BILIRUBIN NEG (NEG); URINE BLOOD 3+ (NEG); URINE COLOR YELLOW; URINE GLUCOSE 250 MG/DL (NEG); URINE KETONE 1+ (NEG); URINE LEUKOCYTE ESTERASE TRACE (NEG); URINE NITRATE NEG (NEG); URINE PROTEIN TRACE (NEG); URINE SPECIFIC GRAVITY 1.019 (1.003-1.035)
[2017-01-26 12:34] LABS: CULTURE INDICATED? YES; URBCS1 AUWI 50-100 /[HPF] (0-2); URINE BACTERIA AUWI NEG (NEGATIVE); URINE SQUAMOUS EPITHELIAL CELL NONE SEEN /[HPF]
[2017-01-26 13:01] LABS: %MB 4.4 % (0.0-4.0); MB 7.9 ng/ml
[2017-01-26 14:20] LABS: CHOLESTEROL 159 mg/dL (0-200); HDL CHOLESTEROL 34 mg/dL (35-95); LDL CHOLESTEROL 96 mg/dL (-130); LDL/HDL RATIO 3 RATIO (0-4); TRIGLYCERIDES 147 mg/dL (10-160)
[2017-01-26 14:31] LABS: FOLATE (FOLIC ACID) 7.9 ng/mL (>5.8)
[2017-01-26 14:50] LABS: ALBUMIN SERUM 4.1 g/dL (3.5-5.0); BILIRUBIN, DIRECT 0.2 mg/dL (0.0-0.2); BILIRUBIN,TOTAL 1.2 mg/dL (0.2-2.0)
[2017-01-27 06:43] LABS: HEMATOCRIT 38.1 % (35.0-45.0); HEMOGLOBIN 12.7 gm/dL (12.0-16.0); MEAN CELL VOLUME 93.7 FL (83-96); MEAN CORPUSCULAR HEMOGLOBIN 31.2 PG (28-34); MEAN CORPUSCULAR HGB CONC 33.3 g/dL (30-36); RED BLOOD COUNT 4.06 X10e (3.90-5.30); RED CELL DISTRIBUTION WIDTH 12.9 % (11.0-15.5); WHITE BLOOD COUNT 8.2 X10e3 (4.0-10.5)
[2017-01-27 07:09] LABS: ALBUMIN SERUM 3.7 g/dL (3.5-5.0); BILIRUBIN,TOTAL 1.1 mg/dL (0.2-2.0); BUN/CREATININE RATIO 15.45; CREATININE SERUM 1.1 mg/dL (0.6-1.4); GLOM FILT RATE Estimated 51.2 mL/min (>60); POTASSIUM 3.8 mmol/L (3.5-5.1); PROTEIN TOTAL SERUM 7.3 g/dL (6.0-8.3)
[2017-01-27 07:42] LABS: INR 1.1
[2017-01-28 06:28] LABS: BASOPHIL# 0.1 X10e3 (0-0.3); BASOPHIL% 0.8 % (0-2.5); EOSINOPHIL# 0.1 X10e3 (0-0.7); EOSINOPHIL% 1.1 % (0.0-7.0); LYMPHOCYTE# 1.7 X10e3 (1.0-3.5); LYMPHOCYTE% 21.3 % (17.0-45.0); MEAN CELL VOLUME 93.6 FL (83-96); MEAN CORPUSCULAR HEMOGLOBIN 31.2 PG (28-34); MEAN CORPUSCULAR HGB CONC 33.3 g/dL (30-36); MEAN PLATELET VOLUME 8.7 FL (6.5-11.5); MONOCYTE# 0.8 X10e3 (0-1.0); MONOCYTE% 9.9 % (3.0-12.0); NEUTROPHIL# 5.3 X10e3 (1.5-7.1); NEUTROPHIL% 66.9 % (40-75); PLATELET COUNT 202 X10e3 (140-420); RED BLOOD COUNT 3.84 X10e (3.90-5.30); RED CELL DISTRIBUTION WIDTH 12.6 % (11.0-15.5); WHITE BLOOD COUNT 7.9 X10e3 (4.0-10.5)
[2017-01-28 06:30] LABS: DIFF IND NO
[2017-01-28 06:53] LABS: BUN/CREATININE RATIO 12.3; CREATININE SERUM 1.3 mg/dL (0.6-1.4); GLOM FILT RATE Estimated 41.8 mL/min (>60)
[2017-01-28] MEDS ORDERED: MR (10:21)
[2017-01-30 05:32] LABS: HEMOGLOBIN 11.7 gm/dL (12.0-16.0); MEAN CELL VOLUME 94.1 FL (83-96); MEAN CORPUSCULAR HEMOGLOBIN 31.5 PG (28-34); MEAN CORPUSCULAR HGB CONC 33.5 g/dL (30-36); MEAN PLATELET VOLUME 8.8 FL (6.5-11.5); RED BLOOD COUNT 3.72 X10e (3.90-5.30); RED CELL DISTRIBUTION WIDTH 12.5 % (11.0-15.5); WHITE BLOOD COUNT 5.5 X10e3 (4.0-10.5)
[2017-01-30 06:09] LABS: BUN/CREATININE RATIO 20.9; CALCIUM SERUM 8.9 mg/dL (8.4-10.2); CREATININE SERUM 1.1 mg/dL (0.6-1.4); GLOM FILT RATE Estimated 51.2 mL/min (>60)
[2017-01-30] MEDS ORDERED: LIPITOR40 MG PO (12:58)
[2017-01-30] MEDS ORDERED: MULTI VITAMIN1 EACH PO (13:00)
[2017-01-30] MEDS ORDERED: B-121000 MC3 PO (13:00)
[2017-01-30] MEDS ORDERED: CLOPIDOGREL75 MG PO (13:01)
[2017-01-30] MEDS ORDERED: XALATAN OU (13:15)
== END 2017-01-30 16:30 | disposition home or self-care (01) | DRG 62 ==
LOC: CED 04:49 → CEDOF 08:27 → CICCU2 08:30 → CEDOF 08:30 → CICCU2 11:08 → CEDOF 11:08 → CICCU2 01-27 07:04 → C3A PCU 01-27 20:01
PROVIDERS: Emergency Medicine; Family Medicine; Internal Medicine; Psychiatry & Neurology Neurology; Urology
PROC: 3E03317 Introduction of Other Thrombolytic into Peripheral Vein, Percutaneous Approach (ICD-10-PCS; principal; 2017-01-26)
PROC: B24BZZZ Ultrasonography of Heart with Aorta (ICD-10-PCS; 2017-01-26)
PROC: 0TJB8ZZ Inspection of Bladder, Via Natural or Artificial Opening Endoscopic (ICD-10-PCS; 2017-01-29 12:30)
DX: I63.8 Other cerebral infarction (principal); I69.354 Hemiplegia and hemiparesis following cerebral infarction affecting left non-dominant side; N13.6 Pyonephrosis; I10 Essential (primary) hypertension; R47.81 Slurred speech; Z87.891 Personal history of nicotine dependence; E78.5 Hyperlipidemia, unspecified; E11.9 Type 2 diabetes mellitus without complications; Z79.84 Long term (current) use of oral hypoglycemic drugs; R33.9 Retention of urine, unspecified; N81.10 Cystocele, unspecified
CPT/HCPCS: 36415; 51702; 70450; 70496; 70498; 70551; 71010; 74176; 80048; 80053; 80061; 80076; 81003; 82550; 82553; 82565; 82607; 82746; 82947; 83036; 84484; 85025; 85027; 85610; 87086; 92507; 92523-GN; 92610; 93005; 93306; 94760; 96361; 96365; 97110; 97116; 97162; 97165; 97530; 97532; 99291; G8978-GP; G8979-GP; G8987-GO; G8988-GO; G8989-GO; G8996-GN; G8997-GN; G8998-GN; G9168-GN; G9169-GN; G9170-GN; J1815; J1956; J2270; J2405; J2997; J3010; J3420; Q9967

== ENCOUNTER 2017-02-11 20:52 | Emergency (ER) | payer OTHER ==
[~2017-02-11] VITALS: Ht 162.6 cm; Wt 84.6 kg
[~2017-02-11 20:52] MED LIST: AMARYL PO; ANTI-DIARRHEAL2 M1 PO; ASPIRIN PO; B-121000 MC3 PO; BACLOFEN10 MG PO; BISOPROLOL FUMA10 MG PO; CLOPIDOGREL75 MG PO; GLUCOPHAGE850 MG PO; LIPITOR PO; LIPITOR40 MG PO; MR; MULTI VITAMIN1 EACH PO; PERSANTINE75 MG PO; VALSARTAN-HCTZ1 EACH PO; XALATAN OU
== END 2017-02-11 23:25 | disposition home or self-care (01) ==
LOC: CED 20:52
DX: Z76.0 Encounter for issue of repeat prescription (principal); E11.9 Type 2 diabetes mellitus without complications; Z88.0 Allergy status to penicillin
CPT/HCPCS: 82947; 99281